=== PATIENT | female | born 1950 | race Caucasian/White ===

== ENCOUNTER 2024-11-24 12:32 | Inpatient (IN) | payer MEDICARE, OTHER ==
[2024-11-24] VITALS (8 sets, daily range): BP systolic 137–141; BP diastolic 83–105; PULSE 85–112; RESP 18–25; TEMP 96.4–97.5; O2SAT 85–99
[~2024-11-24] VITALS: Ht 170.2 cm; Wt 99.3 kg
[2024-11-24] MEDS ORDERED: SODIUM CHLORIDE 0.9% 500ML 500 ML IV STA (12:48)
[2024-11-24 12:52] LABS: BASOPHILS # (AUTO) 0.1 (0.0-0.1); BASOPHILS % 0.7 % (0.0-1.0); EOSINOPHILS # (AUTO) 0.1 (0.0-0.4); EOSINOPHILS % 1.3 % (0.0-6.0); HEMATOCRIT 40.8 % (34.2-44.1); HEMOGLOBIN 13.6 g/dL (12.0-16.0); LYMPHOCYTES # (AUTO) 1.6 (1.0-3.2); LYMPHOCYTES % 17.8 % (18.0-39.1); MEAN CORPUSCULAR HGB CONC 33.3 g/dL (31-35); MEAN CORPUSCULAR VOLUME 90.1 fL (81-99); MONOCYTES % 10.3 % (4.4-11.3); NEUTROPHILS # (AUTO) 6.4 (2.1-6.9); NEUTROPHILS % 69.7 % (38.7-80.0); PLATELET COUNT 196 x10e3/uL (140-360); RED BLOOD COUNT 4.53 x10e6/uL (3.6-5.1); RED CELL DISTRIBUTION WIDTH 13.7 % (11.7-14.4); WHITE BLOOD COUNT 9.19 x10e3/uL (4.8-10.8)
[2024-11-24 13:14] LABS: ALBUMIN 3.5 g/dL (3.5-5.0); ALBUMIN/GLOBULIN RATIO 1.1 (0.8-2.0); ANION GAP 17.1 mmol/L (8-16); CREATININE, SERUM 0.87 mg/dL (0.57-1.11); TOTAL PROTEIN 6.7 g/dL (6.5-8.1)
[2024-11-24 13:20] LABS: TROPONIN I 0.094 ng/mL (0-0.300)
[2024-11-24 13:23] LABS: POTASSIUM 3.1 mmol/L (3.5-5.1)
[2024-11-24] MEDS: FUROSEMIDE INJ 10 MG/ML 4 ML VIAL IV ONE (13:23)
[2024-11-24] MEDS: DILTIAZEM HCL 5 MG/ML 5 ML VIAL IV STA (13:25)
[2024-11-24] MEDS ORDERED: IOPAMIDOL 370 MG/ML 100 ML INFUS..BTL INJ ONE (13:26)
[2024-11-24] MEDS: CEFEPIME 2 GM in SODIUM CHLORIDE 0.9% 100 ML IV SCH (13:26)
[2024-11-24 14:13] LABS: INFLUENZA A AG NEGATIVE (NEGATIVE)
[2024-11-24 14:14] LABS: CORONAVIRUS COVID-19 AG NEGATIVE (NEGATIVE); INFLUENZA B AG NEGATIVE (NEGATIVE)
[2024-11-24] MEDS: Vancomycin IV 1 GM in SODIUM CHLORIDE 0.9% 250ML 250 ML IV ONE (15:12)
[2024-11-24] MEDS: ASPIRIN 81 MG CHEW TAB PO ONE (16:10)
[2024-11-24] MEDS: METOPROLOL TARTRATE 25 MG TAB PO SCH (16:50)
[2024-11-24] MEDS: POTASSIUM CHLORIDE 20 MEQ TAB CR PO SCH (18:37)
[2024-11-24] MEDS: ENOXAPARIN INJ 80 MG/0.8 ML SYR SC SCH (21:11)
[2024-11-25] VITALS (11 sets, daily range): BP systolic 95–133; BP diastolic 67–81; PULSE 67–91; RESP 18–20; TEMP 97.2–98.4; O2SAT 95–99
[2024-11-25] MEDS: METOPROLOL TARTRATE 25 MG TAB PO SCH (00:03)
[2024-11-25 06:40] LABS: BASOPHILS # (AUTO) 0.1 (0.0-0.1); EOSINOPHILS # (AUTO) 0.2 (0.0-0.4); EOSINOPHILS % 2.9 % (0.0-6.0); HEMATOCRIT 39.2 % (34.2-44.1); LYMPHOCYTES # (AUTO) 1.4 (1.0-3.2); LYMPHOCYTES % 20.8 % (18.0-39.1); MEAN CORPUSCULAR HEMOGLOBIN 30.2 pg (28-32); MEAN CORPUSCULAR HGB CONC 33.2 g/dL (31-35); MONOCYTES # (AUTO) 0.8 (0.2-0.8); MONOCYTES % 11.3 % (4.4-11.3); NEUTROPHILS # (AUTO) 4.4 (2.1-6.9); NEUTROPHILS % 63.7 % (38.7-80.0); PLATELET COUNT 206 x10e3/uL (140-360); RED BLOOD COUNT 4.31 x10e6/uL (3.6-5.1); RED CELL DISTRIBUTION WIDTH 13.4 % (11.7-14.4); WHITE BLOOD COUNT 6.93 x10e3/uL (4.8-10.8)
[2024-11-25 07:16] LABS: TROPONIN I 0.092 ng/mL (0-0.300)
[2024-11-25 07:17] LABS: ALBUMIN 3.2 g/dL (3.5-5.0); ANION GAP 15.2 mmol/L (8-16); BILIRUBIN,TOTAL 0.6 mg/dL (0.2-1.2); CALCIUM 8.9 mg/dL (8.4-10.2); CHOL/HDL RATIO 3.3 (3.0-3.6); CREATININE, SERUM 1.09 mg/dL (0.57-1.11); TOTAL PROTEIN 6.3 g/dL (6.5-8.1)
[2024-11-25 07:29] LABS: THYROID STIMULATING HORMONE 3.361 uIU/mL (0.350-4.940)
[2024-11-25 07:50] LABS: POTASSIUM 3.2 mmol/L (3.5-5.1)
[2024-11-25] MEDS: FUROSEMIDE INJ 10 MG/ML 2 ML VIAL IV SCH (10:07)
[2024-11-25] MEDS: LOSARTAN POTASSIUM 25 MG TAB PO SCH (10:07)
[2024-11-25] MEDS ORDERED: no home meds (10:18)
[2024-11-25] MEDS: LORATADINE 10 MG TAB PO SCH (16:38)
[2024-11-25] MEDS: METOPROLOL SUCCINATE 50 MG TAB XL PO SCH (16:39)
[2024-11-25] MEDS: LORAZEPAM 0.5 MG TAB PO PRN (18:41)
[2024-11-25] MEDS: ATORVASTATIN 20 MG TAB PO SCH (21:22)
[2024-11-26] VITALS (11 sets, daily range): BP systolic 102–138; BP diastolic 59–87; PULSE 68–85; RESP 18–20; TEMP 97.6–98; O2SAT 95–100
[2024-11-26 04:56] LABS: BASOPHILS # (AUTO) 0.1 (0.0-0.1); BASOPHILS % 0.8 % (0.0-1.0); EOSINOPHILS # (AUTO) 0.2 (0.0-0.4); EOSINOPHILS % 2.8 % (0.0-6.0); HEMATOCRIT 37.7 % (34.2-44.1); HEMOGLOBIN 12.5 g/dL (12.0-16.0); LYMPHOCYTES # (AUTO) 1.4 (1.0-3.2); LYMPHOCYTES % 21.5 % (18.0-39.1); MEAN CORPUSCULAR HGB CONC 33.2 g/dL (31-35); MEAN CORPUSCULAR VOLUME 90.6 fL (81-99); MONOCYTES # (AUTO) 0.7 (0.2-0.8); MONOCYTES % 11.4 % (4.4-11.3); NEUTROPHILS # (AUTO) 4.1 (2.1-6.9); NEUTROPHILS % 63.2 % (38.7-80.0); PLATELET COUNT 164 x10e3/uL (140-360); RED BLOOD COUNT 4.16 x10e6/uL (3.6-5.1); RED CELL DISTRIBUTION WIDTH 13.3 % (11.7-14.4); WHITE BLOOD COUNT 6.48 x10e3/uL (4.8-10.8)
[2024-11-26 05:23] LABS: ANION GAP 15.1 mmol/L (8-16); CALCIUM 8.8 mg/dL (8.4-10.2); CREATININE, SERUM 0.9 mg/dL (0.57-1.11)
[2024-11-26 05:24] LABS: POTASSIUM 3.1 mmol/L (3.5-5.1)
[2024-11-26 05:46] LABS: TROPONIN I 0.07 ng/mL (0-0.300)
[2024-11-26] MEDS: LOSARTAN POTASSIUM 25 MG TAB PO SCH (09:11)
[2024-11-26] MEDS: LEVALBUTEROL HCL SOLN NEBU 0.63 MG/3 ML NEB INH PRN (13:58)
[2024-11-27] VITALS (11 sets, daily range): BP systolic 97–127; BP diastolic 51–78; PULSE 72–92; RESP 16–20; TEMP 97.5–98.5; O2SAT 95–98
[2024-11-27 08:38] LABS: INR 1.04; PROTHROMBIN TIME 14.2 seconds (11.9-14.5)
[2024-11-27 08:39] LABS: PARTIAL THROMBOPLASTIN TIME 35.5 seconds (23.8-35.5)
[2024-11-27 08:48] LABS: ALBUMIN 3.2 g/dL (3.5-5.0); ANION GAP 16.2 mmol/L (8-16); BILIRUBIN,TOTAL 0.8 mg/dL (0.2-1.2); CALCIUM 9.3 mg/dL (8.4-10.2); CREATININE, SERUM 0.86 mg/dL (0.57-1.11); POTASSIUM 3.2 mmol/L (3.5-5.1); TOTAL PROTEIN 6.4 g/dL (6.5-8.1)
[2024-11-27] MEDS: DOXYCYCLINE HYCLATE TABLET 100 MG TAB PO SCH (09:11)
[2024-11-27] MEDS: POTASSIUM CHLORIDE 20 MEQ TAB CR PO SCH (09:45)
[2024-11-27 11:58] LABS: BODY FLUID APPEARANCE SL.CLOUDY; BODY FLUID COLOR YELLOW; BODY FLUID TYPE PLEURAL; WBC,BODY FLUID 427 cells/uL
[2024-11-27 11:59] LABS: RBC,BODY FLUID 2000 cells/uL
[2024-11-27 12:25] LABS: LYMPHOCYTES,BODY FLUID 79 %; MONO/MACROPHG,BODY FLUID 7 %; NEUTROPHILS,BODY FLUID 11 %; OTHER CELLS,BODY FLUID 3 %; TOTAL CELLS COUNTED (DIFF) 100
[2024-11-28] VITALS (11 sets, daily range): BP systolic 102–139; BP diastolic 54–85; PULSE 74–87; RESP 18–20; TEMP 97–97.7; O2SAT 94–100
[2024-11-28 06:02] LABS: ANION GAP 15.8 mmol/L (8-16); CALCIUM 8.7 mg/dL (8.4-10.2); CREATININE, SERUM 0.78 mg/dL (0.57-1.11); POTASSIUM 3.8 mmol/L (3.5-5.1)
[2024-11-28] MEDS: AMIODARONE HCL 200 MG TAB PO SCH (12:12)
[2024-11-29] VITALS (9 sets, daily range): BP systolic 104–164; BP diastolic 54–89; PULSE 62–95; RESP 16–20; TEMP 97.7–98.1; O2SAT 97–100
[2024-11-29 07:09] LABS: TOTAL PROTEIN,BODY FLUID 1.9 g/dL
[2024-11-30 03:09] VITALS: BP 125/69; PULSE 86; RESP 18; TEMP 98.5; O2SAT 95
[2024-11-30 05:23] LABS: BASOPHILS % 0.7 % (0.0-1.0); EOSINOPHILS # (AUTO) 0.2 (0.0-0.4); EOSINOPHILS % 3.1 % (0.0-6.0); HEMATOCRIT 37.7 % (34.2-44.1); HEMOGLOBIN 12.5 g/dL (12.0-16.0); LYMPHOCYTES # (AUTO) 1.4 (1.0-3.2); LYMPHOCYTES % 24.3 % (18.0-39.1); MEAN CORPUSCULAR HEMOGLOBIN 29.8 pg (28-32); MEAN CORPUSCULAR HGB CONC 33.2 g/dL (31-35); MEAN CORPUSCULAR VOLUME 89.8 fL (81-99); MONOCYTES # (AUTO) 0.6 (0.2-0.8); MONOCYTES % 10.4 % (4.4-11.3); NEUTROPHILS # (AUTO) 3.4 (2.1-6.9); NEUTROPHILS % 61.3 % (38.7-80.0); PLATELET COUNT 149 x10e3/uL (140-360); RED CELL DISTRIBUTION WIDTH 13.1 % (11.7-14.4); WHITE BLOOD COUNT 5.56 x10e3/uL (4.8-10.8)
[2024-11-30 05:50] LABS: ANION GAP 16.2 mmol/L (8-16); CREATININE, SERUM 0.8 mg/dL (0.57-1.11)
[2024-11-30 05:55] LABS: POTASSIUM 3.2 mmol/L (3.5-5.1)
[2024-11-30 08:00] VITALS: BP 121/77; PULSE 82; RESP 20; TEMP 97.9; O2SAT 94
[2024-11-30] MEDS: APIXABAN 5 MG TABLET PO SCH (09:13)
[2024-11-30] MEDS: POTASSIUM CHLORIDE 20 MEQ TAB CR PO PRN (09:13)
[2024-11-30] MEDS: FUROSEMIDE 40 MG TAB PO SCH (09:14)
[2024-11-30 12:00] VITALS: BP_SYST 108; BP_SYST 111; BP_DIAS 59; BP_DIAS 71; PULSE 77; PULSE 80; RESP 17; RESP 20; TEMP 97.7; TEMP 97.9; O2SAT 97; O2SAT 98
== END 2024-11-30 18:46 | disposition home or self-care (01) | DRG 291 ==
LOC: ER 12:38 → ERHOLD 13:04 → MED/SURG 15:45
PROVIDERS: ADMIT Family Medicine; ATTEND Family Medicine
PROC: 0W993ZZ Drainage of Right Pleural Cavity, Percutaneous Approach (ICD-10-PCS; principal; 2024-11-27)
DX: I11.0 Hypertensive heart disease with heart failure (principal); I50.21 Acute systolic (congestive) heart failure; J18.9 Pneumonia, unspecified organism; J96.00 Acute respiratory failure, unspecified whether with hypoxia or hypercapnia; I45.2 Bifascicular block; J91.8 Pleural effusion in other conditions classified elsewhere; J98.11 Atelectasis; E87.20 Acidosis, unspecified; N39.0 Urinary tract infection, site not specified; I48.91 Unspecified atrial fibrillation; I34.0 Nonrheumatic mitral (valve) insufficiency; I87.2 Venous insufficiency (chronic) (peripheral); R53.81 Other malaise; F41.9 Anxiety disorder, unspecified; I73.00 Raynaud's syndrome without gangrene; R00.0 Tachycardia, unspecified; E66.01 Morbid (severe) obesity due to excess calories; Z68.34 Body mass index [BMI] 34.0-34.9, adult; Z71.3 Dietary counseling and surveillance; Z99.81 Dependence on supplemental oxygen; M17.0 Bilateral primary osteoarthritis of knee; M47.819 Spondylosis without myelopathy or radiculopathy, site unspecified; E78.5 Hyperlipidemia, unspecified; S49.92XS Unspecified injury of left shoulder and upper arm, sequela; S49.91XS Unspecified injury of right shoulder and upper arm, sequela; V29.99XS Rider (driver) (passenger) of other motorcycle injured in unspecified traffic accident, sequela; Z11.52 Encounter for screening for COVID-19
CPT/HCPCS: 32555; 36415; 71045; 71046; 71260; 74470; 76604; 80048; 80053; 80061; 82550; 82945; 83605; 83615; 83880; 84157; 84443; 84484; 85025; 85610; 85730; 87040; 87070; 87205; 88112; 88305; 89051; 93005; 93306; 94640; 94799; 99252; 99285; C1729; J0692; J1650; J1940; J7050; Q9967